=== PATIENT | male | born 1965 | race Two or more races ===

== ENCOUNTER 2019-10-02 16:58 | Emergency (ER) | payer OTHER, MEDICAID ==
[~2019-10-02] VITALS: Ht 177.8 cm; Wt 90.7 kg
[2019-10-02] MEDS ORDERED: MORPHINE SULF INJ 2 MG/ML SYRINGE 1ML IM ONE (19:45)
[2019-10-02] MEDS ORDERED: ONDANSETRON ODT 4 MG TAB PO ONE ×2 (19:45→21:15)
[2019-10-02] MEDS ORDERED: HYDROmorphone HCL 2 MG/ML VL IV ONE (21:15)
[2019-10-02 23:38] LABS: Basophils # (auto) 0 10 ^3/uL (0-0.2); Basophils % (auto) 0.4 % (0.0-2.0); Eosinophils # (auto) 0 10 ^3/uL (0-0.8); Eosinophils % (auto) 0.5 % (0.0-7.0); Hematocrit 43.2 % (41.0-53.0); Hemoglobin 14.2 g/dL (13.5-17.5); Lymphocytes # (auto) 1.9 10 ^3/uL (0.4-5.4); Lymphocytes % (auto) 20.8 % (10.0-50.0); Mean Corpuscular Hemoglobin 28.4 pg (28.0-32.0); Mean Corpuscular Hgb Conc. 32.9 g/dL (32.0-36.0); Mean Corpuscular Volume 86.4 fL (80.0-100.0); Monocytes # (auto) 0.5 10 ^3/uL (0-1.3); Monocytes % (auto) 5.8 % (0.0-12.0); Neutrophils # (auto) 6.5 10 ^3/uL (1.6-8.6); Neutrophils % (auto) 72.5 % (37.0-80.0); Nucleated Red Blood Cells % 0.1 %; Platelet Count (auto) 295 10^3/uL (140-450); Red Blood Cells 5.01 10^6/uL (4.5-5.90); Red Cell Distribution Width 13.5 % (11.8-14.3); White Blood Cell 8.9 10^3/uL (4.4-10.8)
[2019-10-02 23:52] LABS: Albumin 3.7 g/dL (3.4-5.0); BUN/Creatinine Ratio 32.2; Calcium 8.3 mg/dL (8.5-10.1); Potassium 3.8 mmol/L (3.5-5.1)
[2019-10-02 23:54] LABS: Bilirubin, Total 1.2 mg/dL (0.2-1.0); INR 1.07 (0.9-1.15); Partial Thromboplastin Time 25.9 sec (23.64-32.05); Total Protein 7.6 g/dL (6.4-8.2)
[2019-10-03] MEDS ORDERED: HYDROmorphone HCL 2 MG/ML VL IV ONE (00:45)
[2019-10-03 01:08] VITALS: BP 153/92
== END 2019-10-03 01:32 | disposition short-term general hospital (02) ==
LOC: EDBD 16:58 → ER 16:58
DX: S12.110A Anterior displaced Type II dens fracture, initial encounter for closed fracture (principal); E11.9 Type 2 diabetes mellitus without complications; V89.2XXA Person injured in unspecified motor-vehicle accident, traffic, initial encounter; Y93.89 Activity, other specified; Y92.410 Unspecified street and highway as the place of occurrence of the external cause; Y99.8 Other external cause status
CPT/HCPCS: 36415; 70450; 71250; 72070; 72100; 72125; 74176; 80053; 85025; 85610; 85730; 96372; 96374; 96376; 99285; J1170; J2270; L0120; Q0162